=== PATIENT | male | born 1965 | race Caucasian/White ===

== ENCOUNTER → 2020-01-16 | Day surgery (SDC) | payer MEDICARE, OTHER ==
[~2020-01-16] MED LIST: ATORVASTATIN CA20 MG PO; FLONASE ALLERG9.9 ML; FLUOXETINE HCL20 MG PO; METFORMIN HCL500 MG PO; NORCO 10-325 T1 EACH PO; PROPOFOL IV EMULSION 10 MG/ML 20 ML VIAL ONE; PROZAC10 MG PO; SIMVASTATIN20 MG PO
[2020-01-16 08:45] VITALS: BP 145/90
--- NOTE | 2020-01-16 12:59 | Operative Report ---
DATE OF PROCEDURE: 01/16/2020 SURGEON: Ulises Sanches MD PREOPERATIVE DIAGNOSES: 1. History of colon polyp. 2. Chronic gastroesophageal reflux disease. POSTOPERATIVE DIAGNOSES: 1. History of colon polyp. 2. Chronic gastroesophageal reflux disease. 3. Distal esophagitis at the GE junction and narrowing at the level of gastric band. PREOP INDICATIONS: 1. Assess for mucosal disease in the upper GI tract given history of reflux disease and history of lap band. 2. Rule out development of further colon polyps. PROCEDURES: 1. Colonoscopy. 2. Esophagogastroduodenoscopy with distal esophageal biopsy. ANESTHESIA: Moderate sedation with IV propofol. FLUID: As per Anesthesia. ASSISTANTS: None. ESTIMATED BLOOD LOSS: Minimal. DRAINS: None. COMPLICATIONS: None. SPECIMENS: Esophageal biopsy at the GE junction. GRAFTS: None. FINDINGS: 1. Distal esophagitis at the GE junction. 2. Narrowing at the level of the gastric band in the fundus. 3. Normal colonoscopic exam, however, poor prep. DESCRIPTION OF PROCEDURE: The patient was brought to the endoscopy suite and was sedated with IV propofol. Preprocedure pause was performed. Adult-sized endoscope was introduced into the oropharynx and guided to the duodenum. No gastric mucosal or duodenal abnormalities were noted. There was a moderate inflammation at the GE junction in the distal esophagus, which was biopsied with cold forceps. There was also narrowing at the level of the lap band, which opened up with passage of the scope. We then desufflated the stomach and removed the endoscope. We then repositioned the patient to perform the colonoscopy and adult-sized colonoscope was introduced through the rectum and guided to the level of the cecum. Of note, the prep was quite poor, making complete mucosal examination inadequate, however, from what we did observe I did not note any abnormalities in the colon. The patient tolerated the procedure well. Ulises Sanches MD C/MODL /[id number]
== END | disposition home or self-care (01) ==
LOC: OR 07:20
PROVIDERS: ATTEND Surgery
DX: K21.9 Gastro-esophageal reflux disease without esophagitis (principal); Z86.010 Personal history of colon polyps; K20.9 Esophagitis, unspecified; K31.89 Other diseases of stomach and duodenum; K57.92 Diverticulitis of intestine, part unspecified, without perforation or abscess without bleeding; Z98.84 Bariatric surgery status; G47.33 Obstructive sleep apnea (adult) (pediatric); E11.9 Type 2 diabetes mellitus without complications; I10 Essential (primary) hypertension; E78.5 Hyperlipidemia, unspecified; E66.01 Morbid (severe) obesity due to excess calories; F32.9 Major depressive disorder, single episode, unspecified; Z88.1 Allergy status to other antibiotic agents; Z88.8 Allergy status to other drugs, medicaments and biological substances; Z01.810 Encounter for preprocedural cardiovascular examination; Z01.812 Encounter for preprocedural laboratory examination; Z11.59 Encounter for screening for other viral diseases; Z79.84 Long term (current) use of oral hypoglycemic drugs; Z68.32 Body mass index [BMI] 32.0-32.9, adult
CPT/HCPCS: 36415; 43239; 45378; 82948; 88305; 93005; J2704; U0002

== ENCOUNTER → 2020-03-05 | Day surgery (SDC) | payer MEDICARE, OTHER ==
[2020-03-01 15:43] LABS: ANION GAP 17.5 mmol/L (8-16); BLOOD UREA NITROGEN 21 mg/dL (7-26); BUN/CREATININE RATIO 20 (6-25); CALCIUM 9.5 mg/dL (8.4-10.2); CARBON DIOXIDE 25 mmol/L (22-29); CHLORIDE 101 mmol/L (98-107); CREATININE, SERUM 1.03 mg/dL (0.72-1.25); EST GLOMERULAR FILTRATION RATE > 60 ML/MIN (60-); GLUCOSE 115 mg/dL (74-118); POTASSIUM 4.5 mmol/L (3.5-5.1); SODIUM 139 mmol/L (136-145)
[~2020-03-05] MED LIST changes: +ACETAMINOPHEN/CODEINE 300MG - 30MG TAB ONE; +AMBIEN10 MG PO; +BUPIVACAINE HCL 0.5% INJ 30 ML VIAL INJ ONE; +CEFAZOLIN SOD 1 GM/NS 50ML 0 ML IV ONE; +DEXAMETHASONE SOD PHOS INJ 4 MG/ML VIAL ONE; +FENTANYL CITRATE/PF 100MCG/2 ML INJ ONE; +LABETALOL HCL 5 MG/ML 20ML VIAL ONE; +LIDOCAINE HCL (LTA) 4 ML SOLN ONE; +LIDOCAINE HCL 2% LOCAL INJ 5 ML SDV VIAL INJ ONE; +LISINOPRIL10 MG PO; +MIDAZOLAM HCL 2 MG/2 ML VIAL ONE; +ONDANSETRON HCL INJ 2MG/ML 2ML 2 MG/ML VIAL ONE; +ROCURONIUM BROMIDE 10 MG/ML 5ML VIAL IV ONE; +SEVOFLURANE INHAL SOLN 250 ML PEN BTL ONE; +SUCCINYLCHOLINE CHLORIDE 20 MG/ML 10ML VIAL ONE; +SUGAMMADEX SODIUM 200 MG/2 ML VIAL IV ONE; +VANCOMYCIN 1GM/NS 250 ML 250 ML ONE
[2020-03-05 10:20] VITALS: BP 149/86
--- NOTE | 2020-03-05 14:29 | Operative Report ---
DATE OF PROCEDURE: 03/05/2020 SURGEON: Ulises Sanches MD PREOPERATIVE DIAGNOSES: 1. Dysphagia. 2. Nausea and vomiting. 3. Chronic gastroesophageal reflux disease. 4. Status post lap band placement in 2010. POSTOPERATIVE DIAGNOSES: 1. Dysphagia. 2. Nausea and vomiting. 3. Chronic gastroesophageal reflux disease. 4. Status post lap band placement in 2009. PREOPERATIVE INDICATION: Prevent complications from lap band. PROCEDURE: Laparoscopic removal of adjustable gastric band along with subcutaneous port, CPT 57494. ANESTHESIA: General. SOCIAL MEDIA MARKETING ANALYST: Lauri Pugh, surgical attendant (needed due to complexity of case). FLUIDS: 1 L crystalloid. ESTIMATED BLOOD LOSS: 10 mL. DRAINS: None. COMPLICATIONS: None. SPECIMENS: Laparoscopic adjustable gastric band with subcutaneous port and catheter. GRAFTS: None. FINDINGS: Severe intra-abdominal adhesions, making the dissection much more difficult. PROCEDURE IN DETAIL: The patient was brought to the operating room and was intubated under general endotracheal anesthesia. He was sterilely prepped and draped in the usual fashion. A preprocedure pause was performed identifying the patient, use of perioperative antibiotics, intended procedure, and staff surgeon. Access was gained via a 5 mm left subcostal incision using a Veress needle. Severe adhesions were noted. An additional 5 mm left lower quadrant trocar was placed. Three additional trocars were placed in the right abdomen in standard positions. I spent a great deal of time lysing adhesions from the anterior abdominal wall being careful not to injure any intestinal structures. I was then able to finally get access enough to place a liver retractor. We were able to expose the laparoscopic adjustable gastric band along the fundus of the stomach. I have meticulously dissected this using a Harmonic Scalpel and I was able to remove it and through the right periumbilical port site. Next, we removed the portion of the intra-abdominal catheter and then closed the large port site with 0 Vicryl suture using a Armen-Paulette technique. We then verified hemostasis and desufflated the abdomen, and removed the liver retractor and trocars were removed. Next, I turned my attention to the subcutaneous port and then I made incision in a transverse fashion overlying this. Dissection was carried through the subcutaneous tissues. The port was then circumferentially dissected and removed in its entirety along with the rest of the intra-abdominal portion of the catheter. We then closed the large subcutaneous port site with 3-0 Vicryl suture and 4-0 Monocryl suture. The skin incision sites were closed with 4-0 Monocryl suture in a subcuticular fashion. Dermabond dressings were applied. A 0.25% bupivacaine was used both at the preperitoneal incision sites. The patient tolerated the procedure well. Type of wound is type 1, clean. All surgical sponge and instrument counts were correct. Ulises Sanches MD Baljit/GREYL /[id number]
== END | disposition home or self-care (01) ==
LOC: OR 05:22
PROVIDERS: ATTEND Surgery
DX: Z46.51 Encounter for fitting and adjustment of gastric lap band (principal); K66.0 Peritoneal adhesions (postprocedural) (postinfection); K20.9 Esophagitis, unspecified; R13.10 Dysphagia, unspecified; K21.9 Gastro-esophageal reflux disease without esophagitis; R11.2 Nausea with vomiting, unspecified; G47.33 Obstructive sleep apnea (adult) (pediatric); I10 Essential (primary) hypertension; E11.9 Type 2 diabetes mellitus without complications; Z88.8 Allergy status to other drugs, medicaments and biological substances; Z01.810 Encounter for preprocedural cardiovascular examination; Z01.812 Encounter for preprocedural laboratory examination; Z11.59 Encounter for screening for other viral diseases; Z79.84 Long term (current) use of oral hypoglycemic drugs
CPT/HCPCS: 36415 ×2; 43774; 80048; 82948; 93005; J0330; J1100; J2001; J2250; J2405; J2704; J3010; J3370; J3490; U0002; J0690